=== PATIENT | male | born 1970 | race Two or more races ===

== ENCOUNTER 2019-05-15 18:18 | Emergency (ER) | payer OTHER ==
[~2019-05-15] VITALS: Ht 175.3 cm; Wt 81.6 kg
[2019-05-15] MEDS ORDERED: UNOBMED (18:30)
[2019-05-15 18:36] VITALS: BP 134/87
--- NOTE | 2019-05-15 18:36 | NUR ---
ED Nurse Note: pt walked in to ER for alcohol intoxication. pt aao x4 but talkative and restless. skin clean and intact but flushed skin noted. no acute distress and alcohol withdraw symptoms noted at this moment. accompanied by friend and pt and the friend both smell strong alcohol.
--- NOTE | 2019-05-15 18:50 | NUR ---
ED Nurse Note: x-ray at bedside.
--- NOTE | 2019-05-15 19:04 | NUR ---
HAND-OFF: Report given to LIN Murillo. no orders to carry at this moment. blood and urine sample have sent to the lab.
[2019-05-15 19:13] LABS: APPEARANCE,URINE CLEAR; BASOPHILS % (AUTO) 0.7 % (0.0-2.0); BILIRUBIN, URINE NEGATIVE (NEGATIVE); EOSINOPHILS % (AUTO) 1.6 % (0.0-3.0); GLUCOSE, URINE (UA) NEGATIVE (NEGATIVE); HEMATOCRIT 50.6 % (42.0-52.0); HEMOGLOBIN 17.8 G/DL (14.2-18.0); KETONES,URINE NEGATIVE (NEGATIVE); LEUKOCYTE ESTERASE ,URINE NEGATIVE (NEGATIVE); LYMPHOCYTES % (AUTO) 46.7 % (20.0-45.0); MEAN CORPUSCULAR VOLUME 86 FL (80-99); MONOCYTES % (AUTO) 6.6 % (1.0-10.0); NEUTROPHILS % (AUTO) 44.4 % (45.0-75.0); NITRITE,URINE NEGATIVE (NEGATIVE); PH,URINE 7 (4.5-8.0); PLATELET COUNT 212 K/UL (150-450); PROTEIN,URINE 1+ (NEGATIVE); RED CELL DISTRIBUTION WIDTH 10.8 % (11.6-14.8); UROBILINOGEN,URINE 1 MG/DL (0.0-1.0); WHITE BLOOD COUNT 6.9 K/UL (4.8-10.8)
[2019-05-15 19:14] LABS: COLOR,URINE YELLOW
[2019-05-15 19:28] LABS: ANION GAP 12 mmol/L (5-15); BLOOD UREA NITROGEN 14 mg/dL (7-18); CARBON DIOXIDE 27 MMOL/L (21-32); CHLORIDE 104 MMOL/L (98-107); CREATININE 1.1 MG/DL (0.55-1.30); POTASSIUM 3.8 MMOL/L (3.5-5.1); SODIUM 143 MMOL/L (136-145)
[2019-05-15 19:32] LABS: ALANINE AMINOTRANSFERASE 103 U/L (12-78); ALBUMIN 3.5 G/DL (3.4-5.0); ALBUMIN/GLOBULIN RATIO 0.9 (1.0-2.7); ALKALINE PHOSPHATASE 112 U/L (46-116); ASPARTATE AMINO TRANSFERASE 89 U/L (15-37); BILIRUBIN,TOTAL 0.5 MG/DL (0.2-1.0); CREATINE KINASE 234 U/L (26-308)
[2019-05-15] MEDS ORDERED: ZOFRAN4 M1 ORAL (19:56)
--- NOTE | 2019-05-15 19:56 | Emergency Room Report ---
History of Present Illness General Chief Complaint: Alcohol Intoxication Source: Patient Present Illness HPI 48-year-old male with history of alcohol abuse and cocaine abuse here requesting to be medically cleared in order to be able to go to rehab. Patient is here with his friend who is going to take him to rehab. Patient reports that he has extensive history of alcohol abuse and cocaine abuse and has been times. He has been relapsing for the past month and has been taking alcohol on daily basis. Patient last saw his psychiatrist 3 weeks ago and was given Valium for alcohol withdrawal. Patient did Valium today. Also reports that he has been using cocaine frequently for the past month and last cocaine use was this past Wednesday. Patient denies fall or injury or loss of consciousness or any head trauma. Denies chest pain, shortness of breath, palpitation, abdominal pain. Complains of nausea vomiting and acid reflux denies bloody emesis. Denies dizziness and headache. Patient is speaking in full sentences. In mild distress. Denies all other drug use. Has been drinking water to hydrate. Denies suicidal homicidal ideations. Allergies: Coded Allergies: No Known Allergies (Unverified , 05/15/19) Patient History Past Medical History: see triage record Past Surgical History: unable to obtain Pertinent Family History: none Social History: Reports: alcohol use, drug use - Cocaine Immunizations: UTD Reviewed Nursing Documentation: PMH: Agreed; PSxH: Agreed Nursing Documentation-PMH Past Medical History: No History, Except For Review of Systems All Other Systems: negative except mentioned in HPI Physical Exam Vital Signs Date Time Temp Pulse Resp B/P (MAP) Pulse Ox O2 Delivery O2 Flow Rate FiO2 05/15/19 18:23 98.1 96 16 134/87 (103) 96 Room Air Sp02 EP Interpretation: reviewed, normal General Appearance: alert, GCS 15, mild distress Head: normocephalic, atraumatic Eyes: bilateral eye normal inspection, bilateral eye PERRL ENT: hearing grossly normal, normal pharynx, no angioedema, normal voice Neck: full range of motion, supple/symm/no masses Respiratory: chest non-tender, lungs clear, normal breath sounds, no rhonchi, no wheezing, speaking full sentences Cardiovascular #1: regular rate, rhythm, no edema, no JVD, no murmur, normal capillary refill Cardiovascular #2: 2+ radial (R), 2+ radial (L) Gastrointestinal: normal bowel sounds, non tender, soft, no mass, no peritonitis, non-distended, no guarding, no rebound Genitourinary: no CVA tenderness Musculoskeletal: back normal, gait/station normal, normal range of motion, non- tender, calf tenderness Neurologic: alert, oriented x3, responsive, motor strength/tone normal, sensory intact, speech normal Psychiatric: judgement/insight normal, memory normal, mood/affect normal, no suicidal/homicidal ideation Skin: no rash Lymphatic: no adenopathy Medical Decision Making PA Attestation All diagnoses and treatment plans were reviewed and discussed with my supervising physician Dr. Albarran Diagnostic Impression: Primary Impression: Alcohol withdrawal Additional Impression: Cocaine abuse ER Course 48-year-old male with history of alcohol abuse and cocaine abuse here requesting to be medically cleared in order to be able to go to rehab. Patient is here with his friend who is going to take him to rehab. Patient reports that he has extensive history of alcohol abuse and cocaine abuse and has been times. He has been relapsing for the past month and has been taking alcohol on daily basis. Patient last saw his psychiatrist 3 weeks ago and was given Valium for alcohol withdrawal. Patient did Valium today. Also reports that he has been using cocaine frequently for the past month and last cocaine use was this past Wednesday. Patient denies fall or injury or loss of consciousness or any head trauma. Denies chest pain, shortness of breath, palpitation, abdominal pain. Complains of nausea vomiting and acid reflux denies bloody emesis. Denies dizziness and headache. Patient is speaking in full sentences. In mild distress. Denies all other drug use. Has been drinking water to hydrate. Denies suicidal homicidal ideations. Ddx considered but are not limited to: generalized anxiety disorder, panic attack, depression with psychotic feature, bipolar disorder, drug overdose Vital signs: are WNL, pt. is afebrile H&PE are most consistent with: Alcohol withdrawal, cocaine abuse ORDERS: CBC, CMP, UA, urine tox screen, blood alcohol level, EKG, troponin, chest x-ray ED INTERVENTIONS: NS bolus, Zofran, Pepcid DISCHARGE: At this time pt. is stable for d/c to home. Will provide printed patient care instructions, and any necessary prescriptions. Care plan and follow up instructions have been discussed with the patient prior to discharge. Patient was discharged to go to rehab center patient stable at time of discharge. EKG Diagnostic Results Rate: bradycardiac Rhythm: other ST Segments: no acute changes Other Impression No acute ST changes Chest X-Ray Diagnostic Results Chest X-Ray Diagnostic Results : Chest X-Ray Ordered: Yes # of Views/Limited/Complete: 1 View Indication: Other EP Interpretation: Yes PA Xray: Interpretation reviewed, by supervising MD, and agrees with findings. Interpretation: no consolidation, no effusion, no pneumothorax Impression: No acute disease Electronically Signed by: Dorothy Mallory PA-C Last Vital Signs Date Time Temp Pulse Resp B/P (MAP) Pulse Ox O2 Delivery O2 Flow Rate FiO2 05/15/19 18:36 96 16 Room Air 05/15/19 18:36 98.1 134/87 96 Disposition: HOME, SELF-CARE Condition: Stable Scripts Ondansetron (Zofran) 4 Mg Tablet 4 MG ORAL Q6H PRN for Nausea & Vomiting, #12 TAB Prov: Dorothy Heredia 05/15/19 Referrals: SAYRA ADAMS (PCP) Patient Instructions: Stimulant Use Disorder-Cocaine Additional Instructions: Follow-up with primary care provider go to rehab center avoid using alcohol and cocaine. Dorothy Heredia May 15, 2019 19:56
[2019-05-15 20:00] VITALS: BP 124/80
--- NOTE | 2019-05-15 20:01 | NUR ---
ER DISCHARGE NOTE: Patient is cleared to be discharged per ERMD, pt is aox4, on room air, with stable vital signs. pt was given dc and prescription instructions, pt was able to verbalize understanding, pt id band and iv site removed without complications. pt is able to ambulate with steady gait with friend. pt took all belongings.
[2019-05-15 20:02] VITALS: BP 124/80
--- NOTE | 2019-05-16 09:16 | Diagnostic Imaging Report ---
Indication: Chest pain Technique: One view of the chest Comparison: none Findings: There is some atelectasis or scarring at the left lung base. Lungs and pleural spaces are clear otherwise. Heart size is normal. Impression: No acute process
--- NOTE | 2019-05-16 11:01 | Cardiology Report ---
APPROVED REPORT EKG Measurement Heart [id number] Normal sinus rhythm with sinus arrhythmia Rightward axis Borderline ECG
== END 2019-05-15 20:03 | disposition home or self-care (01) ==
LOC: EMR 18:54
DX: F10.239 Alcohol dependence with withdrawal, unspecified (principal); F14.10 Cocaine abuse, uncomplicated
CPT/HCPCS: 36415; 71045; 80053; 80307; 81001; 82550; 84484; 85025; 93005; 96361; 96374; 96375; 99284; G0480; J2405; S0028; 80329